=== PATIENT | female | born 1995 | race Two or more races ===

== ENCOUNTER 2018-07-02 10:38 | Emergency (ER) | payer BC ==
[~2018-07-02] VITALS: Ht 154.9 cm; Wt 59.0 kg
[2018-07-02] MEDS ORDERED: NEOMYCIN-BACITRACIN-POLYM 15GM TOP OINT TOP ONE (10:45)
[2018-07-02 10:48] VITALS: BP 121/80
[2018-07-02] MEDS: NEOMYCIN-BACITRACIN-POLYM 15GM TOP OINT TOP SCH ×2 (10:48→12:14)
[2018-07-02] MEDS ORDERED: TETRACAINE HCL 0.5% OPTH(EYE) SOLN 4ML LEFTEYE ONE (12:00)
[2018-07-02] MEDS ORDERED: TETRACAINE HCL 0.5% OPTH(EYE) SOLN 4ML ONE (12:02)
[2018-07-02] MEDS ORDERED: FLUORESCEIN SOD 1 MG TEST STRIP OP ONE (12:15)
== END 2018-07-02 13:20 | disposition home or self-care (01) ==
LOC: ER 10:38
DX: T15.82XA Foreign body in other and multiple parts of external eye, left eye, initial encounter (principal); X58.XXXA Exposure to other specified factors, initial encounter; Y93.89 Activity, other specified; Y99.8 Other external cause status; Y92.89 Other specified places as the place of occurrence of the external cause

== ENCOUNTER 2021-02-14 00:04 | Emergency (ER) | payer SELFPAY ==
[~2021-02-14] VITALS: Ht 157.5 cm; Wt 74.8 kg
[2021-02-14 01:00] LABS: Basophils # (auto) 0 10 ^3/uL (0-0.2); Basophils % (auto) 0.2 % (0.0-2.0); Eosinophils # (auto) 0.1 10 ^3/uL (0-0.8); Eosinophils % (auto) 1.3 % (0.0-7.0); Hematocrit 38.6 % (36.0-46.0); Hemoglobin 12.8 g/dL (12.2-16.2); Lymphocytes % (auto) 18.3 % (10.0-50.0); Mean Corpuscular Hemoglobin 29.8 pg (28.0-32.0); Mean Corpuscular Hgb Conc. 33.2 g/dL (32.0-36.0); Mean Corpuscular Volume 89.6 fL (80.0-100.0); Monocytes # (auto) 0.9 10 ^3/uL (0-1.3); Monocytes % (auto) 8.3 % (0.0-12.0); Neutrophils # (auto) 7.7 10 ^3/uL (1.6-8.6); Neutrophils % (auto) 71.9 % (37.0-80.0); Platelet Count (auto) 338 10^3/uL (140-450); Red Blood Cells 4.31 10^6/uL (4.0-5.20); Red Cell Distribution Width 13.4 % (11.8-14.3); White Blood Cell 10.7 10^3/uL (4.4-10.8)
[2021-02-14 01:20] LABS: Albumin 3.4 g/dL (3.4-5.0); BUN/Creatinine Ratio 22.6; Calcium 8.3 mg/dL (8.5-10.1); Potassium 3.5 mmol/L (3.5-5.1)
[2021-02-14 01:22] LABS: Bilirubin, Total 0.2 mg/dL (0.2-1.0); Total Protein 6.8 g/dL (6.4-8.2)
[2021-02-14 03:27] VITALS: BP 122/76
== END 2021-02-14 03:32 | disposition home or self-care (01) ==
LOC: ER 00:07
DX: R55 Syncope and collapse (principal)
CPT/HCPCS: 36415; 80053; 84484; 85025; 93005

== ENCOUNTER 2022-04-30 14:14 | Emergency (ER) | payer BC, OTHER ==
[~2022-04-30] VITALS: Ht 157.5 cm; Wt 68.0 kg
[2022-04-30 17:16] VITALS: BP 116/78
[2022-04-30] MEDS ORDERED: CEPH-509 PO (17:25)
[2022-04-30] MEDS ORDERED: ACET-1158 PO (17:25)
[2022-04-30] MEDS ORDERED: TETANUS-DIPTH-ACEL PERTUSSIS 0.5ML SYR Tdap IM ONE (17:30)
== END 2022-04-30 18:20 | disposition home or self-care (01) ==
LOC: ER 14:14
DX: S61.102A Unspecified open wound of left thumb with damage to nail, initial encounter (principal); W26.8XXA Contact with other sharp object(s), not elsewhere classified, initial encounter; Y93.89 Activity, other specified; Y92.89 Other specified places as the place of occurrence of the external cause; Y99.8 Other external cause status
CPT/HCPCS: 90471; 90715